=== PATIENT | female | born 1980 | race Caucasian/White ===

== ENCOUNTER 2017-08-10 19:24 | Emergency (ER) | payer SELFPAY ==
--- NOTE | 2017-08-10 19:43 | ED PDOC ---
Arrival/HPI - General Time Seen by Provider: 08/10/17 19:25 Historian: Patient - History of Present Illness Narrative History of Present Illness (Text): 08/10/17 19:43 37 y/o female, no significant pmh, nkda, c/o lt. lower molar pain x 2 days with no fall or trauma. Aching pain, aggravated by chewing, no numbness or tingling , no chest pain or shortness of breath, no facial swelling, no other medical or psychological complaints. Past Medical History - Provider Review Nursing Documentation Reviewed: Yes - Past History Past History: Non-Contributing - Infectious Disease Hx of Infectious Diseases: None - Psychiatric Hx Psychophysiologic Disorder: No Hx Anxiety: No Hx Bipolar Disorder: No Hx Depression: No Hx Emotional Abuse: No Hx Hallucinations: No Hx Panic Disorder: No Hx Post Traumatic Stress Disorder: No Hx Psychosis: No Hx Physical Abuse: No Hx Schizophrenia: No Hx Sexual Abuse: No Hx Substance Use: No - Surgical History Hx Section: Yes - Anesthesia Hx Anesthesia: No Hx Anesthesia Reactions: No Hx Malignant Hyperthermia: No Family/Social History - Physician Review Nursing Documentation Reviewed: Yes Family/Social History: Unknown Family HX Smoking Status: Never Smoked Hx Alcohol Use: No Hx Substance Use: No Allergies/Home Meds Allergies/Adverse Reactions: Allergies No Known Allergies Allergy (Verified 08/10/17 19:49) Review of Systems - Review of Systems Constitutional: absent: Fatigue, Fevers Eyes: absent: Vision Changes ENT: absent: Hearing Changes Respiratory: absent: SOB, Cough Cardiovascular: absent: Chest Pain Gastrointestinal: absent: Abdominal Pain, Nausea, Vomiting Skin: absent: Rash, Pruritis Neurological: absent: Headache Psychiatric: absent: Anxiety, Depression, Suicidal Ideation Physical Exam Vital Signs Reviewed: Yes Vital Signs Temp Pulse Resp BP Pulse Ox 08/10/17 19:51 98.5 F 99 H 16 106/67 99 Temperature: Afebrile Blood Pressure: Normal Pulse: Regular Respiratory Rate: Normal Appearance: Positive for: Well-Appearing, Non-Toxic Pain Distress: Severe Mental Status: Positive for: Alert and Oriented X 3 - Systems Exam Head: Present: Atraumatic, Normocephalic Pupils: Present: PERRL Extroacular Muscles: Present: EOMI Conjunctiva: Present: Normal Mouth: Present: Moist Mucous Membranes Pharnyx: Present: Other (+lt. lower molar dental caries noted, no gingival abscess or gingivitis, no facial swelling. ). No: ERYTHEMA, EXUDATE, TONSILS ENLARGED Neck: Present: Normal Range of Motion Respiratory/Chest: Present: Clear to Auscultation, Good Air Exchange. No: Respiratory Distress, Accessory Muscle Use Cardiovascular: Present: Regular Rate and Rhythm, Normal S1, S2. No: Murmurs Abdomen: Present: Normal Bowel Sounds. No: Tenderness, Distention, Peritoneal Signs Back: Present: Normal Inspection Upper Extremity: Present: Normal Inspection. No: Cyanosis, Edema Lower Extremity: Present: Normal Inspection. No: Edema Neurological: Present: GCS=15, Speech Normal, Motor Func Grossly Intact, Gait Normal, Memory Normal Skin: Present: Warm, Dry, Normal Color. No: Rashes Psychiatric: Present: Alert, Oriented x 3, Normal Insight, Normal Concentration Medical Decision Making ED Course and Treatment: 08/10/17 20:05 -Toradol IM/percocet/amoxicillin 08/10/17 20:31 -Discharge home with amoxicillin, motrin, soft food diet, follow up with your own pmd and dentist within 2 days, return to the ER for any new or worseing signs or symptoms. - Medication Orders Current Medication Orders: Discontinued Medications Amoxicillin (Amoxil 500 Mg Cap) 500 mg PO STAT STA PRN Reason: Protocol Stop: 08/10/17 20:01 Last Admin: 08/10/17 20:14 Dose: 500 mg Ketorolac Tromethamine (Toradol) 60 mg IM STAT STA Stop: 08/10/17 20:01 Last Admin: 08/10/17 20:18 Dose: 60 mg MAR Pain Assessment Document 08/10/17 20:18 (Rec: 08/10/17 20:19 [id number] Pain Reassessment Is this a pain reassessment? Yes Sleep Is patient sleeping during reassessment? No Presence of Pain Presence of Pain Yes Pain Scale Used Pain Scale Used Numeric Location Left, Right or Bilateral Left Upper or Lower Upper Pain Location Body Site Face Description Description Constant Pain Behavior Facial Grimacing IM Administration Charges Document 08/10/17 20:18 (Rec: 08/10/17 20:19 [id number] Injection Site MAR Injection Site Left Deltoid Charges for Administration # of IM Administrations 1 Oxycodone/Acetaminophen (Percocet 5/325 Mg Tab) 1 tab PO STAT STA Stop: 08/10/17 20:05 Last Admin: 08/10/17 20:17 Dose: 1 tab MAR Pain Assessment Document 08/10/17 20:17 RG (Rec: 08/10/17 20:18 [facility] [id number] Pain Reassessment Is this a pain reassessment? Yes Presence of Pain Presence of Pain Yes Pain Scale Used Pain Scale Used Numeric Location Left, Right or Bilateral Left Pain Location Body Site Face Description Description Constant Pain Behavior Facial Grimacing Aggravating Factors Contant - PA / [employer] / Resident Statement MD/DO has reviewed & agrees with the documentation as recorded. Disposition/Present on Arrival - Present on Arrival Any Indicators Present on Arrival: No History of DVT/PE: No History of Uncontrolled Diabetes: No Urinary Catheter: No History of Decub. Ulcer: No History Surgical Site Infection Following: None - Disposition Have Diagnosis and Disposition been Completed?: Yes Diagnosis: Pain, dental, Dental caries Disposition: HOME/ ROUTINE Disposition Time: 20:32 Patient Plan: Discharge Condition: IMPROVED Additional Instructions: -Discharge home with amoxicillin, motrin, soft food diet, follow up with your own pmd and dentist within 2 days, return to the ER for any new or worseing signs or symptoms. Prescriptions: Amoxicillin 500 mg PO TID #30 tab Ibuprofen [Motrin Tab] 600 mg PO QID PRN #24 tab PRN Reason: Other Referrals: Malcolm Kauffman, [Primary Care Provider] - [place] [facility] [place] [facility] [place] - Follow up with primary Forms: WORK NOTE
[2017-08-10 19:49] VITALS: BMI 24.1
[2017-08-10 19:52] VITALS: BP 106/67; PULSE 99; RESP 16; TEMP 98.5; O2SAT 99
[2017-08-10] MEDS ORDERED: Oxycodone/Acetaminophen 5/325 mg Tab PO STA (20:04)
== END 2017-08-10 20:37 | disposition home or self-care (01) ==
LOC: ED 19:24
DX: K02.9 Dental caries, unspecified (principal)
CPT/HCPCS: 96372; 99283; J1885